=== PATIENT | female | born 1970 | race Caucasian/White ===

== ENCOUNTER 2017-01-19 17:00 | Emergency (ER) | payer OTHER | END 2017-01-19 18:35 | disposition home or self-care (01) | LOC: ER 17:00 | DX: S43.401A Unspecified sprain of right shoulder joint, initial encounter (principal); S13.9XXA Sprain of joints and ligaments of unspecified parts of neck, initial encounter; F17.210 Nicotine dependence, cigarettes, uncomplicated; W11.XXXA Fall on and from ladder, initial encounter | CPT/HCPCS: 96372; J1885 ==